=== PATIENT | female | born 2000 | race African-American/Black ===

== ENCOUNTER 2019-08-13 17:43 | Emergency (ER) | payer OTHER ==
[~2019-08-13] VITALS: Ht 165.1 cm; Wt 131.5 kg
[2019-08-13] MEDS ORDERED: HYDRALAZINE HCL 20 MG/ML VIAL IV STA (19:30)
[2019-08-13] MEDS ORDERED: CLONIDINE HCL 0.1 MG TAB PO ONE (19:45)
--- NOTE | 2019-08-13 19:45 | Diagnostic Imaging Report ---
EXAMINATION: CHEST 2 VIEWS INDICATION: ^ORDER PLACED BY ^[id number] ^[id number] ^Y. COMPARISON: None FINDINGS: PA and lateral views TUBES and LINES: None. LUNGS: Lungs are well inflated. There is no evidence of pneumonia or pulmonary edema. PLEURA: No pleural effusion or pneumothorax. HEART AND MEDIASTINUM: The cardiomediastinal silhouette is unremarkable. BONES AND SOFT TISSUES: No acute osseous lesion. Soft tissues are unremarkable. UPPER ABDOMEN: No free air under the diaphragm. IMPRESSION: No acute thoracic abnormality. Signed by: Wicho Isabel MD on 08/13/2019 7:42 PM
== END 2019-08-13 20:41 | disposition home or self-care (01) ==
LOC: ER 17:43
DX: R05 Cough (principal); J20.9 Acute bronchitis, unspecified
CPT/HCPCS: 71046; 87400; 99283